=== PATIENT | female | born 1990 | race Caucasian/White ===

== ENCOUNTER 2018-01-10 22:56 | Emergency (ER) | payer OTHER ==
--- NOTE | 2018-01-11 00:43 | ED Physician Documentation ---
PD HPI LOWER EXT INJURY - Stated complaint Stated Complaint: R FOOT LAC - Chief complaint Chief Complaint: Ext Problem - History obtained from History obtained from: Patient - History of Present Illness PD HPI LOW EXT INJURY LOCATION: Right, Foot Type of injury: Laceration Where injury occurred: Home Timing - onset: How many minutes ago (30) Timing - details: Abrupt onset, Still present Pain level now: 6 Improved by: Rest Worsened by: Moving, Palpating Recently seen: Not recently seen - Additional information Additional information: stepped on sharp object in her kitchen, feels like it was glass (recently broke a glass in kitchen) and has sharp FB sensation whenever she bears weight on the right foot Review of Systems Skin: reports: Laceration (s) Neurologic: denies: Focal weakness, Numbness PD PAST MEDICAL HISTORY - Past Medical History Past Medical History: No - Allergies Allergies/Adverse Reactions: Allergies Allergy/AdvReac Type Severity Reaction Status Date / Time No Known Drug Allergies Allergy Verified 01/10/18 23:13 PD ED PE NORMAL - Vitals Vital signs reviewed: Yes - General General: Alert and oriented X 3, No acute distress, Well developed/nourished - Extremities Extremities: Normal ROM s pain, No edema - Neuro Neuro: No motor deficit, No sensory deficit PD ED PE EXPANDED - Extremities Feet visual: 1 - laceration (punctrue, 0.5 cm), tenderness Results - Vitals Vitals: Oxygen O2 Source Room air Procedures - FB removal FB location: Subcutaneous FB removal preparation: Local anesthesia-specify (1% lidocaine) Removal method: Foreceps, Incision (incision was minimally lengthened for better exposure) FB removal aftercare: No complications, Patient tolerated well, Removed successfully PD MEDICAL DECISION MAKING - ED course Complexity details: reviewed results, re-evaluated patient, considered differential, d/w patient - Sepsis Event Vital Signs: Oxygen O2 Source Room air Departure - Departure Disposition: 01 Home, Self Care Clinical Impression: Foreign body (FB) in soft tissue Condition: Good Instructions: ED Foreign Body Soft Tissue Removed Discharge Date/Time: 01/11/18 03:21
[2018-01-11] MEDS ORDERED: LIDOCAINE 1% 2 ML VIAL SUBQ STA (00:56)
--- NOTE | 2018-01-11 01:29 | XRAY Report ---
Procedure Date: 01/11/2018 Accession Number: [id number] / [id number] Procedure: XR - Foot 3 View RT CPT Code: FULL RESULT: EXAM: RIGHT FOOT RADIOGRAPHY EXAM DATE: 01/11/2018 01:12 AM. CLINICAL HISTORY: Laceration, possible foreign body. COMPARISON: None. TECHNIQUE: 3 views. FINDINGS: Bones: No acute fracture seen. Joints: No dislocation. Joint spaces appear intact. Soft Tissues: Possible subtle small foreign body in the plantar soft tissues at the approximate level of the second metatarsal head. IMPRESSION: 1. Possible small subtle faintly seen foreign body in the plantar soft tissues at the approximate level of the second metatarsal head. RADIA
[2018-01-11 01:55] VITALS: BP 103/82
[2018-01-11] MEDS ORDERED: BACITRACIN OINT TOP STA (03:08)
== END 2018-01-11 03:21 | disposition home or self-care (01) ==
LOC: ED 22:56
DX: S91.341A Puncture wound with foreign body, right foot, initial encounter (principal); W26.9XXA Contact with unspecified sharp object(s), initial encounter; W45.8XXA Other foreign body or object entering through skin, initial encounter; Y92.000 Kitchen of unspecified non-institutional (private) residence as the place of occurrence of the external cause
CPT/HCPCS: 28190; 73630; 99283; A9270

== ENCOUNTER 2018-03-25 20:52 | Emergency (ER) | payer OTHER ==
--- NOTE | 2018-03-25 21:38 | ED Physician Documentation ---
PD HPI HEADACHE - Stated complaint Stated Complaint: ZHANG - Chief complaint Chief Complaint: Neuro - History obtained from History obtained from: Patient - History of Present Illness Timing - onset: How many days ago (8) Timing - onset during: Light activity Timing - duration: Days (8) Timing - details: Gradual onset, Still present, Waxing and waning Worst headache ever?: No: Worst headache ever? (has had similar ones the past year or so, lasting few days up to 11 days longest. Interval times between them is normal without headache. Had not been seen for prior ones. Seen by PMD couple days ago for this one and Rx Imitrex, which she took without improvement.) Location: Front Quality: Throbbing, Aching Associated symptoms: Nausea, Vision changes (some blurred at times; and light sensitive). No: Fever, Stiff neck, Vomiting, Weakness, Numbness Improved by: Dark room Worsened by: Light, Moving. No: Noise Contributing factors: No: Anticoagulated, Hypertension, Recent illness, Trauma Similar symptoms before: No diagnosis Recently seen: Clinic Review of Systems Constitutional: reports: Fatigue. denies: Fever, Chills, Myalgias Nose: reports: Congestion. denies: Rhinorrhea / runny nose Throat: denies: Sore throat Respiratory: denies: Cough GI: reports: Nausea. denies: Abdominal Pain, Vomiting, Diarrhea Skin: denies: Rash, Lesions Neurologic: denies: Focal weakness, Numbness Endocrine: denies: Weight loss Immunocompromised: denies: Immunocompromised PD PAST MEDICAL HISTORY - Past Medical History Cardiovascular: None Respiratory: None Neuro: None, Other (recurrent headaches with intervals of no headache over the past year or so. No eval/diagnosis. ) Endocrine/Autoimmune: None GI: None SOFTWARE DEVELOPER MID LEVEL: None : None HEENT: None Psych: None Musculoskeletal: None Derm: None - Past Surgical History Past Surgical History: No - Present Medications Home Medications: Ambulatory Orders Medication Instructions Recorded Confirmed Bcp 03/25/18 Naproxen [Naprosyn] 500 mg PO BID PRN #20 tablet 03/25/18 Ondansetron HCl [Zofran] 4 mg PO Q6H PRN #20 tablet 03/25/18 Sumatriptan Succinate [Imitrex] 50 - 100 mg PO DAILY 03/25/18 03/25/18 - Allergies Allergies/Adverse Reactions: Allergies Allergy/AdvReac Type Severity Reaction Status Date / Time No Known Drug Allergies Allergy Verified 03/25/18 20:59 - Living Situation Living Situation: reports: With spouse/s.o. Living Arrangement: reports: At home - Social History Does the pt smoke?: No Smoking Status: Never smoker Does the pt drink ETOH?: No Does the pt have substance abuse?: No - Family History Family history: reports: Other (brain tumor in grandmother). 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 No focal symptoms nor red flags to denote need for emergent imaging or other tests. Symptoms improved with meds here. Had not improved with Imitrex Rx by PCP but headache was 7 days into it so not expect to get improvement with tryptans. ), considered differential (discussed imaging or not, and I talked about the low yield of imaging for headache pattern such as this and if imaging to be done, then MRI is better. So I would not consider need for CT/imaging this evening. ), d/w patient Departure - Departure Disposition: 01 Home, Self Care Clinical Impression: Migraine Qualifiers: Migraine type: without aura Status migrainosus presence: with status migrainosus Intractability: not intractable Qualified Code(s): G43.001 - Migraine without aura, not intractable, with status migrainosus Condition: Stable Record reviewed to determine appropriate education?: Yes Instructions: ED Headache Migraine Follow-Up: QUITA CONNELLY MD [Primary Care Provider] - Prescriptions: Naproxen [Naprosyn] 500 mg PO BID PRN #20 tablet PRN Reason: Headache Ondansetron HCl [Zofran] 4 mg PO Q6H PRN #20 tablet PRN Reason: Nausea / Vomiting Comments: The sound like migraine type headaches. Use some Zofran if needed for nausea and hydrocodone if needed for pain subsequently later tonight and into tomorrow. At this point though I think the current headache will improve and go away. For subsequent headaches, use the Imitrex previously prescribed in combination with naproxen and Zofran and see if it is effective at stopping the migraines early in the course, like in the first few hours. Follow-up with your primary care regarding further evaluation and treatment.
[2018-03-25] MEDS ORDERED: SODIUM CHLORIDE 0.9% 1,000 ML IV ONE (22:01)
[2018-03-25] MEDS ORDERED: METOCLOPRAMIDE 10 MG/2 ML VIAL IVP STA ×2 (22:01→23:05)
[2018-03-25] MEDS ORDERED: KETOROLAC 30 MG/ML VIAL IVP STA (22:01)
[2018-03-25] MEDS ORDERED: diphenhydrAMINE INJ 50 MG/ML VIAL IVP STA (22:01)
[2018-03-25] MEDS ORDERED: DEXAMETHASONE 10 MG/ML VIAL IVP STA (22:01)
[2018-03-25 22:28] LABS: BASOPHILS % (AUTO) 0.4 %; EOSINOPHILS # (AUTO) 0.1 10^3/uL (0.0-0.7); EOSINOPHILS % (AUTO) 0.8 %; HGB - HEMOGLOBIN 13.7 g/dL (12.0-16.0); LYMPHOCYTES # (AUTO) 2.6 10^3/uL (1.5-3.5); LYMPHOCYTES % (AUTO) 39.7 %; MEAN CORPUSCULAR HEMOGLOBIN 32.4 pg (27.0-31.0); MEAN CORPUSCULAR VOLUME 92.5 fL (81.0-99.0); MEAN PLATELET VOLUME 8.4 fL (7.9-10.8); MONOCYTES # (AUTO) 0.4 10^3/uL (0.0-1.0); MONOCYTES % (AUTO) 6.7 %; NEUTROPHILS # (AUTO) 3.5 10^3/uL (1.5-6.6); NEUTROPHILS % (AUTO) 52.4 %; PLT - PLATELET COUNT 241 10^3/uL (130-450); RED BLOOD COUNT 4.22 10^6/uL (4.20-5.40); RED CELL DISTRIBUTION WIDTH 12.9 % (12.0-15.0); WHITE BLOOD COUNT 6.6 x10^3/uL (4.8-10.8)
[2018-03-25 22:42] LABS: ALBUMIN 4.6 g/dL (3.2-5.5); ALBUMIN/GLOBULIN RATIO 1.6 (1.0-2.2); BILIRUBIN,TOTAL 0.6 mg/dL (0.2-1.0); CALCIUM 9.2 mg/dL (8.5-10.3); CREATININE 0.6 mg/dL (0.4-1.0); TOTAL PROTEIN 7.5 g/dL (6.7-8.2)
[2018-03-25] MEDS ORDERED: HYDROcod/ACET 5/325 Prepack 4 PO STA (23:05)
[2018-03-25] MEDS ORDERED: ONDANSETRON ODT 4 MG Prepack 2 TL PRN (23:05)
[2018-03-25 23:14] VITALS: BP 108/59
== END 2018-03-25 23:20 | disposition home or self-care (01) ==
LOC: ED 20:52
DX: G43.001 Migraine without aura, not intractable, with status migrainosus (principal); R11.0 Nausea
CPT/HCPCS: 36415; 80053; 83690; 85025; 85651; 96361; 96374; 96375; 96376; 99283; 99284; J1200; J2765

== ENCOUNTER 2018-03-29 21:05 | Emergency (ER) | payer OTHER ==
--- NOTE | 2018-03-29 21:31 | ED Physician Documentation ---
PD HPI FOCAL NEURO - Stated complaint Stated Complaint: NUMB FACE/ZHANG/FATIGUE - Chief complaint Chief Complaint: Neuro - History obtained from History obtained from: Patient - History of Present Illness Timing - onset: How many days ago (12 days ago) Timing - details: Gradual onset, Constant, Waxing and waning Severity of deficit: Mild Weakness: Left (arm) Numbness: Left (face, arm, leg) Associated symptoms: Headache Baseline status: positive: A&OX3, ambulatory, indep Similar symptoms before: Has not had sx before Recently seen: Emergency Dept - Additional information Additional information: c/o bifrontal ZHANG x 12 days, T+R from this ED 4 days ago (given benadryl, toradol , reglan, decadron) and then evaluated at [facility] and given immitrex. also prescribed hydrocodone from this ED. she reports that she has not had any effective, lasting relief with these measures. most recent vicodin dose was 17:00 today. 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 also weakness of LUE and LLE. Review of Systems Constitutional: reports: Reviewed and negative Eyes: reports: Reviewed and negative Cardiac: reports: Reviewed and negative Respiratory: reports: Reviewed and negative GI: reports: Reviewed and negative Musculoskeletal: reports: Reviewed and negative Neurologic: reports: Focal weakness, Numbness, Headache. denies: Confused, Altered mental status PD PAST MEDICAL HISTORY - Past Medical History Cardiovascular: None Respiratory: None Neuro: None, Other Endocrine/Autoimmune: None GI: None INVENTORY COORDINATOR: None : None HEENT: None Psych: None Musculoskeletal: None Derm: None - Past Surgical History Past Surgical History: No - Present Medications Home Medications: Ambulatory Orders Medication Instructions Recorded Confirmed Bcp 03/25/18 Naproxen [Naprosyn] 500 mg PO BID PRN #20 tablet 03/25/18 Ondansetron HCl [Zofran] 4 mg PO Q6H PRN #20 tablet 03/25/18 Sumatriptan Succinate [Imitrex] 50 - 100 mg PO DAILY 03/25/18 03/25/18 Metoclopramide [Reglan] 10 mg PO Q6H PRN #14 tablet 03/30/18 oxyCODONE/ACET 5/325 [Percocet 5 1 - 2 each PO Q6H PRN #14 tablet 03/30/18 mg/325 mg] - Allergies Allergies/Adverse Reactions: Allergies Allergy/AdvReac Type Severity Reaction Status Date / Time No Known Drug Allergies Allergy Verified 03/29/18 21:18 - Social History Does the pt smoke?: No Smoking Status: Never smoker Does the pt drink ETOH?: No Does the pt have substance abuse?: No - Immunizations Immunizations are current?: Yes - POLST Patient has POLST: No PD ED PE NORMAL - Vitals Vital signs reviewed: Yes - General General: Alert and oriented X 3, No acute distress, Well developed/nourished - HEENT HEENT: Atraumatic, PERRL, EOMI, Moist mucous membranes - Neck Neck: Supple, no meningeal sign - Cardiac Cardiac: RRR, No murmur - Respiratory Respiratory: No respiratory distress, Clear bilaterally - Derm Derm: Normal color, Warm and dry, No rash - Neuro Neuro: Alert and oriented X 3, 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 no facial droop), Abnormal sensation (decreased LTS left face, LUE, LLE), CNII-XII intact (except numbness left face), PERRL, Cerebellar nl, Normal speech Results - Vitals Vitals: Vital Signs - 24 hr 03/29/18 03/29/18 03/30/18 22:35 23:28 00:38 Heart Rate 83 90 99 Respiratory 18 16 15 Rate Blood Pressure 121/81 H 131/85 H 90/53 L O2 Saturation 100 100 99 03/30/18 03/30/18 03/30/18 01:04 01:53 02:17 Heart Rate 94 76 73 Respiratory 15 17 16 Rate Blood Pressure 91/60 86/52 L 96/68 O2 Saturation 99 100 100 03/30/18 03/30/18 02:40 02:50 Heart Rate 82 77 Respiratory 16 16 Rate Blood Pressure 109/83 H 112/75 O2 Saturation 97 100 Oxygen O2 Source Room air - Labs Labs: Laboratory Tests 03/29/18 03/29/18 03/29/18 21:17 21:17 23:54 WBC 9.8 RBC 4.39 Hgb 14.3 Hct 40.2 MCV 91.4 MCH 32.6 H MCHC 35.6 RDW 13.0 Plt Count 232 MPV 8.2 Neut # (Auto) 5.0 Lymph # (Auto) 4.0 H [place] # (Auto) 0.6 Eos # (Auto) 0.1 Baso # (Auto) 0.0 Absolute Nucleated RBC 0.02 Nucleated RBC % 0.2 Sodium 136 Potassium 3.2 L Chloride 101 Carbon Dioxide 26 Anion Gap 9.0 BUN 10 Creatinine 0.7 Estimated GFR (MDRD) 101 Glucose 101 H Calcium 9.3 Total Bilirubin 0.4 AST 18 ALT 14 Alkaline Phosphatase 68 Total Protein 8.1 Albumin 5.0 Globulin 3.1 Albumin/Globulin Ratio 1.6 Lipase 21 L Ur Specific [place] <=1.005 Urine HCG, Qual NEGATIVE - Rads (name of study) CTH Radiology: Prelim report reviewed, See rad report CT head angio Radiology: Prelim report reviewed, See rad report CT neck angio Radiology: Prelim report reviewed, See rad report PD MEDICAL DECISION MAKING - ED course Complexity details: reviewed results, re-evaluated patient, considered differential, d/w patient ED course: D/W Dr. Baptiste (neurology at [facility]) both before and after ED testing. he suspects migraine with hemiplegia, recommends toradol, benadryl, antinauseant (such as reglan or compazine, specifically), magnesium sulfate 1 gm IV and depakote 500mg IV; discharge with f/u pmd or neuro and avoid triptans. patient reported improvement with these measures, although not resolution. Departure - Departure Disposition: 01 Home, Self Care Clinical Impression: Migraine, hemiplegic Condition: Good Instructions: ED Headache Migraine Follow-Up: QUITA CONNELLY MD [Primary Care Provider] - (Call this morning to arrange for next available appointment) Prescriptions: Metoclopramide [Reglan] 10 mg PO Q6H PRN #14 tablet PRN Reason: Nausea / Vomiting oxyCODONE/ACET 5/325 [Percocet 5 mg/325 mg] 1 - 2 each PO Q6H PRN #14 tablet PRN Reason: Pain Discharge Date/Time: 03/30/18 02:54
[2018-03-29 21:33] LABS: BASOPHILS % (AUTO) 0.4 %; EOSINOPHILS # (AUTO) 0.1 10^3/uL (0.0-0.7); EOSINOPHILS % (AUTO) 0.5 %; HGB - HEMOGLOBIN 14.3 g/dL (12.0-16.0); LYMPHOCYTES % (AUTO) 40.9 %; MEAN CORPUSCULAR HEMOGLOBIN 32.6 pg (27.0-31.0); MEAN CORPUSCULAR HGB CONC 35.6 g/dL (32.0-36.0); MEAN CORPUSCULAR VOLUME 91.4 fL (81.0-99.0); MEAN PLATELET VOLUME 8.2 fL (7.9-10.8); MONOCYTES # (AUTO) 0.6 10^3/uL (0.0-1.0); MONOCYTES % (AUTO) 6.4 %; NEUTROPHILS % (AUTO) 51.8 %; PLT - PLATELET COUNT 232 10^3/uL (130-450); RED BLOOD COUNT 4.39 10^6/uL (4.20-5.40); WHITE BLOOD COUNT 9.8 x10^3/uL (4.8-10.8)
[2018-03-29 21:43] LABS: ALBUMIN/GLOBULIN RATIO 1.6 (1.0-2.2); BILIRUBIN,TOTAL 0.4 mg/dL (0.2-1.0); CALCIUM 9.3 mg/dL (8.5-10.3); CREATININE 0.7 mg/dL (0.4-1.0); TOTAL PROTEIN 8.1 g/dL (6.7-8.2)
[2018-03-29] MEDS ORDERED: IOPAMIDOL-300 100 ML VIAL ONE (22:11)
--- NOTE | 2018-03-29 22:14 | CT Report ---
Reason: left-sided weakness/numbness Procedure Date: 03/29/2018 Accession Number: [id number] / [id number] Procedure: CT - Head W/O Stroke Protocol CPT Code: FULL RESULT: EXAM: CT HEAD WITHOUT CONTRAST. EXAM DATE: 03/29/2018 10:07 PM. CLINICAL HISTORY: Left-sided weakness/numbness. COMPARISON: None. TECHNIQUE: Multiaxial CT images were obtained from the foramen magnum to the vertex. Reformats: Sagittal and coronal. IV contrast: None. In accordance with CT protocol optimization, one or more of the following dose reduction techniques were utilized for this exam: automated exposure control, adjustment of mA and/or KV based on patient size, or use of iterative reconstructive technique. FINDINGS: Parenchyma: No intraparenchymal hemorrhage. No evidence of mass, midline shift, or CT findings of acute infarction. Lawson-white differentiation is distinct. Extraaxial Spaces: Normal for age. No subdural or epidural collections identified. Ventricles: Normal in size and position. Sinuses and Orbits: Imaged paranasal sinuses, orbits, and mastoids show no significant abnormality. Bones: No evidence of fracture or calvarial defect. IMPRESSION: Normal head CT. ASPECTS score is 10 on the right and 10 on the left. RADIA The call report notification system was initiated by Dr. Anna Briones at 22:11 hrs on 03/29/18. The above findings were discussed with Dr. López by Dr. Anna Briones at 22:13 hrs on 03/29/18.
--- NOTE | 2018-03-29 23:10 | CT Report ---
Reason: left-sided weakness/numbness Procedure Date: 03/29/2018 Accession Number: [id number] / [id number] Procedure: CT - Neck Angio CPT Code: FULL RESULT: EXAM: CT ANGIOGRAM HEAD AND NECK CT SCAN HEAD WITH CONTRAST EXAM DATE:03/29/2018 10:26 PM. CLINICAL HISTORY:Left-sided weakness/numbness. COMPARISON:Noncontrast brain CT from the same day. TECHNIQUE: Routine axial helical CTA imaging was performed from the aortic arch through the [place] of [place]. Routine axial CT imaging of the head was performed following contrast administration. Reconstructions: Routine multiplanar 3D MIP reconstructions. IV contrast: 80 mL Isovue 300. NASCET Criteria are used for stenosis measurements. In accordance with CT protocol optimization, one or more of the following dose reduction techniques were utilized for this exam: automated exposure control, adjustment of mA and/or KV based on patient size, or use of iterative reconstructive technique. FINDINGS: No abnormal brain parenchymal enhancement is appreciated. CT ANGIOGRAM EXTRACRANIAL CIRCULATION: The visualized arch is unremarkable. Great vessels are patent and unremarkable. Right Carotid: The common carotid, internal carotid, and external carotid arteries are widely patent. No dissection, significant atherosclerotic plaque, or calcification identified. Left Carotid: The common carotid, internal carotid, and external carotid arteries are widely patent. No dissection, significant atherosclerotic plaque, or calcification identified. Vertebrals: The vertebrobasilar system shows no stenosis, dissection, aneurysm, or significant atherosclerotic disease. The right vertebral artery is dominant. The left vertebral artery arises directly from the aortic arch, a normal variant. CT ANGIOGRAM INTRACRANIAL CIRCULATION: The internal carotid arteries are patent from the superior cervical to the supraclinoid portions. The bilateral A1, A2, M1, and M2 segments are patent. A normal caliber anterior communicating artery is present. In the posterior circulation, the bilateral V4 segments are patent. The PICAs and AICAs are well-demonstrated. The basilar artery is widely patent throughout its course to the terminus. There is normal contrast opacification in the superior cerebellar and posterior cerebral arteries. Bilateral posterior communicating arteries are present. The dural venous sinuses are patent. Other: The visualized bones, soft tissues, and lung apices are unremarkable. IMPRESSION: 1. No abnormal brain parenchymal enhancement. 2. Patent dural venous sinuses. 3. Normal CTA of the head and neck. RADIA The above findings were discussed with Dr. López by Dr. Anna Briones at 23:04 hrs on 03/29/18.
[2018-03-29] MEDS ORDERED: MAGNESIUM SULFATE 1 GM/2 ML VIAL IVP STA (23:48)
[2018-03-29] MEDS ORDERED: KETOROLAC 60 MG/2 ML VIAL IVP STA (23:49)
[2018-03-29] MEDS ORDERED: diphenhydrAMINE INJ 50 MG/ML VIAL IVP STA (23:49)
[2018-03-29] MEDS ORDERED: METOCLOPRAMIDE 10 MG/2 ML VIAL IVP STA (23:49)
[2018-03-29] MEDS ORDERED: VALPROATE INJ 500 MG in SODIUM CHLORIDE 0.9% 100ML 100 ML IV STA (23:49)
[2018-03-29] MEDS ORDERED: IOPAMIDOL-300 100 ML VIAL IVP ONE (23:58)
[2018-03-30] MEDS ORDERED: MAGNESIUM SULFATE 1 GM/2 ML VIAL ONE (00:10)
[2018-03-30 00:42] LABS: HCG UR QUAL NEGATIVE
[2018-03-30] MEDS ORDERED: SODIUM CHLORIDE 0.9% 500 ML IV STA (01:55)
[2018-03-30 02:50] VITALS: BP 112/75
== END 2018-03-30 02:54 | disposition home or self-care (01) ==
LOC: ED 21:05
DX: G43.409 Hemiplegic migraine, not intractable, without status migrainosus (principal)
CPT/HCPCS: 36415; 70450; 70496; 70498; 80053; 81025; 83690; 85025; 96365; 96375; 99283; 99285; J1200; J2765; Q9967

== ENCOUNTER 2018-08-26 08:00 | Outpatient (CLI) | payer OTHER ==
[2018-08-26 18:05] LABS: MUDS CUTOFF CONCENTRATIONS CUTOFF CONC BELOW:
[2018-08-26 19:16] LABS: AMPHETAMINE SCREEN,URINE NEGATIVE (NEGATIVE); BENZODIAZEPINES SCREEN, URINE NEGATIVE (NEGATIVE); COCAINE SCREEN URINE NEGATIVE (NEGATIVE); METHADONE SCREEN, URINE NEGATIVE (NEGATIVE); METHAMPHETAMINES SCREEN, URINE NEGATIVE (NEGATIVE); OPIATE SCREEN, URINE NEGATIVE (NEGATIVE); OXYCODONE SCREEN, URINE NEGATIVE (NEGATIVE); PROPOXYPHENE SCREEN, URINE NEGATIVE (NEGATIVE); TRICYCLIC ANTIDEPRESSANT,URINE NEGATIVE (NEGATIVE)
== END 2018-08-26 23:59 | disposition home or self-care (01) ==
LOC: LAB.R 08:00
PROVIDERS: ATTEND Registered Nurse
DX: Z33.1 Pregnant state, incidental (principal)
CPT/HCPCS: 80306

== ENCOUNTER 2018-10-20 13:19 | Outpatient (CLI) | payer OTHER ==
[2018-10-20 14:46] LABS: HGB - HEMOGLOBIN 11.4 g/dL (12.0-16.0); MEAN CORPUSCULAR HEMOGLOBIN 33.7 pg (27.0-31.0); MEAN CORPUSCULAR HGB CONC 34.7 g/dL (32.0-36.0); MEAN CORPUSCULAR VOLUME 97.2 fL (81.0-99.0); MEAN PLATELET VOLUME 7.1 fL (7.9-10.8); RED BLOOD COUNT 3.38 10^6/uL (4.20-5.40); RED CELL DISTRIBUTION WIDTH 12.5 % (12.0-15.0); WHITE BLOOD COUNT 10.6 x10^3/uL (4.8-10.8)
== END 2018-10-20 13:20 | disposition home or self-care (01) ==
LOC: LAB 13:19
PROVIDERS: ATTEND Registered Nurse
DX: Z34.90 Encounter for supervision of normal pregnancy, unspecified, unspecified trimester (principal)
CPT/HCPCS: 36415; 82950; 85027; 86850

== ENCOUNTER 2018-10-25 20:35 | Emergency (ER) | payer OTHER ==
[2018-10-25] MEDS ORDERED: ACETAMINOPHEN 325 MG TABLET PO STA (22:16)
[2018-10-25] MEDS ORDERED: METOCLOPRAMIDE 10 MG/2 ML VIAL IVP STA (22:19)
[2018-10-25 22:30] LABS: BASOPHILS % (AUTO) 0.1 %; EOSINOPHILS # (AUTO) 0.1 10^3/uL (0.0-0.7); EOSINOPHILS % (AUTO) 0.9 %; HGB - HEMOGLOBIN 11.8 g/dL (12.0-16.0); LYMPHOCYTES # (AUTO) 1.9 10^3/uL (1.5-3.5); LYMPHOCYTES % (AUTO) 22.3 %; MEAN CORPUSCULAR HEMOGLOBIN 33.9 pg (27.0-31.0); MEAN CORPUSCULAR HGB CONC 35.2 g/dL (32.0-36.0); MEAN CORPUSCULAR VOLUME 96.5 fL (81.0-99.0); MEAN PLATELET VOLUME 7.2 fL (7.9-10.8); MONOCYTES # (AUTO) 0.7 10^3/uL (0.0-1.0); MONOCYTES % (AUTO) 8.8 %; NEUTROPHILS # (AUTO) 5.7 10^3/uL (1.5-6.6); NEUTROPHILS % (AUTO) 67.9 %; PLT - PLATELET COUNT 262 10^3/uL (130-450); RED BLOOD COUNT 3.47 10^6/uL (4.20-5.40); RED CELL DISTRIBUTION WIDTH 12.6 % (12.0-15.0); WHITE BLOOD COUNT 8.4 x10^3/uL (4.8-10.8)
[2018-10-25 22:38] LABS: ALBUMIN 2.9 g/dL (3.2-5.5); ALBUMIN/GLOBULIN RATIO 0.9 (1.0-2.2); BILIRUBIN,TOTAL 0.3 mg/dL (0.2-1.0); CALCIUM 8.7 mg/dL (8.5-10.3); CREATININE 0.4 mg/dL (0.4-1.0); TOTAL PROTEIN 6.2 g/dL (6.7-8.2)
--- NOTE | 2018-10-26 00:13 | Ultrasound Report ---
Reason: ruq abdomen Procedure Date: 10/25/2018 Accession Number: [id number] / [id number] Procedure: US - Abdomen Limited CPT Code: FULL RESULT: EXAM: ABDOMEN ULTRASOUND LIMITED, RUQ EXAM DATE: 10/25/2018 11:46 PM. CLINICAL HISTORY: Pain COMPARISON: None. TECHNIQUE: Real-time scanning was performed with static images obtained. FINDINGS: Liver: Diffusely increased echogenicity. 16.1 cm. Main portal vein flow: Hepatopetal. Gallbladder: No stones, wall thickening, or sonographic Thomas's sign. Biliary System: CBD measures 2 mm. No intrahepatic or extrahepatic ductal dilatation. Other: Right kidney demonstrates no hydronephrosis. IMPRESSION: Diffusely increased liver echogenicity, most commonly seen with steatosis. RADIA
--- NOTE | 2018-10-26 00:27 | XRAY Report ---
Reason: chest pain Procedure Date: 10/25/2018 Accession Number: [id number] / [id number] Procedure: XR - Chest 1 View X-Ray CPT Code: 43642 FULL RESULT: EXAM: CHEST RADIOGRAPHY EXAM DATE: 10/25/2018 11:53 PM. CLINICAL HISTORY: Chest pain. COMPARISON: None. TECHNIQUE: 1 view. FINDINGS: Lungs/Pleura: No focal opacities evident. No pleural effusion. No pneumothorax. Mediastinum: Within exam limitations, the cardiomediastinal contour is normal. Other: None. IMPRESSION: Normal single view chest. RADIA
--- NOTE | 2018-10-26 01:17 | ED Physician Documentation ---
History of Present Illness - Stated complaint Stated Complaint: R SHOULDER PAINS/27WK OB - Chief complaint Chief Complaint: General - History obtained from History obtained from: Patient - History of Present Illness Timing: Today Pain level max: 7 Pain level now: 7 Quality: aching, sharp Radiates to: right chest wall Improved by: nothing Worsened by: nothing Associated symptoms: nausea, vomited earlier today. burning in upper abdomen radiating to chest - Treatment prior to arrival Treatment prior to arrival: none - Additonal information Additional information: Pt states she has been nauseous today and vomited a few times. Then later in the day developed R sided scapular pain radiating to R chest and hurts to take a deep breath. She was seen by her doctor who told her she wanted to test her for gallstones. She has some mid upper abdominal discomfort. Reports burning with radiation up into chest. No recent travel, no leg pain or swelling. Not sob and no BARBOSA. No fever or cough. Denies hx of DVT/PE. PD PAST MEDICAL HISTORY - Past Medical History Past Medical History: No Cardiovascular: None Respiratory: None Neuro: None, Other Endocrine/Autoimmune: None GI: None [employer] RESERVATIONS: None : None HEENT: None Psych: None Musculoskeletal: None Derm: None - Past Surgical History Past Surgical History: No - Present Medications Home Medications: Ambulatory Orders Medication Instructions Recorded Confirmed Pnv No.95/Ferrous Fum/Folic AC 1 each PO DAILY 10/25/18 10/25/18 [ Caplet] - Allergies Allergies/Adverse Reactions: Allergies Allergy/AdvReac Type Severity Reaction Status Date / Time No Known Drug Allergies Allergy Verified 10/25/18 20:42 - Social History Does the pt smoke?: No Smoking Status: Never smoker Does the pt drink ETOH?: No Does the pt have substance abuse?: No - Immunizations Immunizations are current?: Yes - POLST Patient has POLST: No PD ED PE NORMAL - Vitals Vital signs reviewed: Yes - General General: Alert and oriented X 3 - HEENT HEENT: Atraumatic - Neck Neck: Supple, no meningeal sign - Cardiac Cardiac: No murmur, No gallop, No rub, Strong equal pulses, Other (regular rhythm, mild tachycardia) - Respiratory Respiratory: No respiratory distress, Clear bilaterally - Abdomen Abdomen: Soft, Non tender, Other (gravid abdomen ) - Female Female : Deferred - Rectal Rectal: Deferred - Back Back: No CVA TTP, No spinal TTP, Other (mild scapular tenderness) - Derm Derm: Normal color, Warm and dry, No rash - Extremities Extremities: No edema, No calf tenderness / cord - Neuro Neuro: Alert and oriented X 3 Eye Opening: Spontaneous Motor: Obeys Commands Verbal: Oriented GCS Score: 15 - Psych Psych: Normal mood, Normal affect Results - Vitals Vitals: Vital Signs - 24 hr 10/26/18 01:19 Temperature 36.7 C Heart Rate 94 Respiratory 16 Rate Blood Pressure 98/62 O2 Saturation 100 Oxygen O2 Source Room air - EKG (time done) No standard instances Rate: Tachy Rhythm: Sinus tachycardia [place]: Normal Intervals: Normal RI QRS: Normal Ischemia: Normal ST segments Other comments: Other comments (no signs of R heart strain, no RBBB or axis deviation) Computer interpretation: Agree with computer - Labs Labs: Laboratory Tests 10/25/18 10/25/18 10/25/18 22:19 22:19 22:19 WBC 8.4 RBC 3.47 L Hgb 11.8 L Hct 33.5 L MCV 96.5 MCH 33.9 H MCHC 35.2 RDW 12.6 Plt Count 262 MPV 7.2 L Neut # (Auto) 5.7 Lymph # (Auto) 1.9 [place] # (Auto) 0.7 Eos # (Auto) 0.1 Baso # (Auto) 0.0 Absolute Nucleated RBC 0.00 Nucleated RBC % 0.0 D-Dimer 274.0 H Sodium 136 Potassium 3.4 L Chloride 103 Carbon Dioxide 22 Anion Gap 11.0 BUN 6 Creatinine 0.4 Estimated GFR (MDRD) 191 Glucose 102 H Calcium 8.7 Total Bilirubin 0.3 AST 17 ALT 10 Alkaline Phosphatase 63 Total Protein 6.2 L Albumin 2.9 L Globulin 3.3 Albumin/Globulin Ratio 0.9 L Lipase 23 Normal labs except mildly elevated d-dimer but when adjusted for end of 2nd/beginning of third trimester this is likely normal. - Rads (name of study) No standard instances Radiology: Final report received (US of RUQ shows mild steatosis but no gallstones and no significant CBD dilatation ) PD MEDICAL DECISION MAKING - ED course Complexity details: reviewed results, re-evaluated patient, considered differential, d/w patient ED course: 28 y/o F with R upper/mid back pain, upper abdominal pain, upper chest pain associated with nausea/vomiting, reports pain with deep breathing and some mild tachycardia. Exam is benign however. DDx includes cholelithiasis, cholecystitis, GERD, pancreatitis, hepatitis, PE, pneumonia. Pt's evaluation here largely negative - no evidence of pancreatitis, gallstones, d-dimer wnl for 2nd trimester of . EKG nonischemic and also not suggestive of PE (no R heart strain). Mild steatosis on US commnicated to patient. Symptoms today likely due GERD associated with her and muscle strain from vomiting earlier today. Pt however was given strict return precautions in case of worsening pain, fever, sob or new concerns. Departure - Departure Disposition: 01 Home, Self Care Clinical Impression: Back pain, Back pain affecting Condition: Good Record reviewed to determine appropriate education?: Yes Instructions: ED Acute Pain [facility] Follow-Up: Provider,Other [Primary Care Provider] - Within 3 Days (recheck your symptoms) Comments: Your labs, Chest xray, EKG, and Ultrasound today were negative except for a mildly fatty liver on ultrasound and a mildly elevated lab called a d-dimer. However this is probably normal at your stage of . Your symptoms improved in the ED. I do not feel that you are having a pulmonary embolism (PE, blood clot in your lung). You do not have gallstones or pancreatitis. Your symptoms may have been due to a strain from vomiting. Follow up with your doctor to recheck your symptoms. Discharge Date/Time: 10/26/18 01:25
[2018-10-26 01:19] VITALS: BP 98/62
== END 2018-10-26 01:25 | disposition home or self-care (01) ==
LOC: ED 20:35
DX: O99.89 Other specified diseases and conditions complicating pregnancy, childbirth and the puerperium (principal); M54.9 Dorsalgia, unspecified; R07.89 Other chest pain; R10.10 Upper abdominal pain, unspecified; R00.0 Tachycardia, unspecified; O99.612 Diseases of the digestive system complicating pregnancy, second trimester; K76.0 Fatty (change of) liver, not elsewhere classified; Z3A.27 27 weeks gestation of pregnancy
CPT/HCPCS: 36415; 71045; 76705; 80053; 83690; 85025; 85379; 93005; 96374; 99283; A9270; J2765; 80048

== ENCOUNTER 2018-10-27 09:47 | Outpatient (CLI) | payer OTHER | END 2018-10-27 09:48 | disposition home or self-care (01) | LOC: LAB 09:47 | PROVIDERS: ATTEND Registered Nurse | DX: O99.810 Abnormal glucose complicating pregnancy (principal) | CPT/HCPCS: 36415; 82951; 82952 ==

== ENCOUNTER 2018-11-28 11:28 | Outpatient (CLI) | payer OTHER ==
[2018-11-28 12:14] LABS: ALBUMIN 3.1 g/dL (3.2-5.5); ALBUMIN/GLOBULIN RATIO 0.8 (1.0-2.2); BILIRUBIN,TOTAL 0.5 mg/dL (0.2-1.0); CALCIUM 8.7 mg/dL (8.5-10.3); CREATININE 0.5 mg/dL (0.4-1.0); TOTAL PROTEIN 6.8 g/dL (6.7-8.2)
== END 2018-11-28 11:29 | disposition home or self-care (01) ==
LOC: LAB 11:28
PROVIDERS: ATTEND Nurse Practitioner Obstetrics & Gynecology
DX: K76.0 Fatty (change of) liver, not elsewhere classified (principal)
CPT/HCPCS: 36415; 80053

== ENCOUNTER 2018-12-05 08:25 | Outpatient (CLI) | payer OTHER ==
--- NOTE | 2018-12-05 11:12 | Ultrasound Report ---
Reason: FATTY LIVER Procedure Date: 12/05/2018 Accession Number: [id number] / [id number] Procedure: US - Abdomen Limited CPT Code: FULL RESULT: EXAM: ABDOMEN ULTRASOUND LIMITED, RUQ EXAM DATE: 12/05/2018 09:55 AM. CLINICAL HISTORY: Fatty liver. COMPARISON: ABDOMEN LIMITED 10/25/2018 10:59 PM. TECHNIQUE: Real-time scanning was performed with static images obtained. FINDINGS: Liver: Echotexture of the hepatic parenchyma is coarse with increased echogenicity which limits evaluation for underlying masses, none are seen. Liver measures at least 16.5 cm. Main portal vein flow: Hepatopetal. Gallbladder: Normal. No stones, wall thickening, or sonographic Thomas's sign. Biliary System: CBD measures 3 mm. No intrahepatic or extrahepatic ductal dilatation. Other: An intrauterine gestation with heart rate of 131 bpm is demonstrated on a single image. IMPRESSION: Coarse echogenic liver parenchyma which is nonspecific but can be seen with steatosis. RADIA
== END 2018-12-05 08:26 | disposition home or self-care (01) ==
LOC: DI 08:25
PROVIDERS: ATTEND Nurse Practitioner Obstetrics & Gynecology
DX: K76.0 Fatty (change of) liver, not elsewhere classified (principal)
CPT/HCPCS: 76705

== ENCOUNTER 2018-12-27 12:34 | Outpatient (CLI) | payer OTHER ==
[2018-12-27 21:41] LABS: TRICHOMONAS VAGINALIS DNA NEGATIVE (NEGATIVE)
== END 2018-12-27 23:59 | disposition home or self-care (01) ==
LOC: LAB.R 12:34
PROVIDERS: ATTEND Nurse Practitioner Obstetrics & Gynecology
DX: Z11.3 Encounter for screening for infections with a predominantly sexual mode of transmission (principal)
CPT/HCPCS: 87491; 87591; 87661; 87797

== ENCOUNTER 2019-01-16 06:46 | Inpatient (IN) | payer OTHER ==
[2019-01-16] MEDS ORDERED: AMPICILLIN 2 GM in SODIUM CHLORIDE 0.9% MINIBAG 100 ML IV ONE (06:56)
[2019-01-16] MEDS ORDERED: SODIUM CHLORIDE FLUSH 0.9% 10 ML SYRINGE ONE (07:37)
[2019-01-16] MEDS ORDERED: LACTATED RINGERS 1,000 ML IV ONE (07:37)
[2019-01-16] MEDS: SODIUM CHLORIDE FLUSH 0.9% 10 ML SYRINGE IVP SCH ×5 (09:00→16:30)
[2019-01-16] MEDS ORDERED: MAGNESIUM HYDROXIDE 2,400 MG/30 ML UDC PO PRN (10:13)
[2019-01-16] MEDS ORDERED: SODIUM CHLORIDE FLUSH 0.9% 10 ML SYRINGE IVP PRN (10:44)
[2019-01-16] MEDS ORDERED: ONDANSETRON 4 MG/2 ML VIAL IVP PRN (10:44)
[2019-01-16] MEDS ORDERED: LACTATED RINGERS 1,000 ML IV SCH ×2 (11:00→21:00)
[2019-01-16 11:11] LABS: BASOPHILS % (AUTO) 0.1 %; EOSINOPHILS # (AUTO) 0.1 10^3/uL (0.0-0.7); EOSINOPHILS % (AUTO) 0.6 %; HGB - HEMOGLOBIN 10.1 g/dL (12.0-16.0); LYMPHOCYTES # (AUTO) 2.3 10^3/uL (1.5-3.5); LYMPHOCYTES % (AUTO) 26.7 %; MEAN CORPUSCULAR HEMOGLOBIN 30.5 pg (27.0-31.0); MEAN CORPUSCULAR HGB CONC 32.7 g/dL (32.0-36.0); MEAN CORPUSCULAR VOLUME 93.4 fL (81.0-99.0); MONOCYTES # (AUTO) 0.7 10^3/uL (0.0-1.0); MONOCYTES % (AUTO) 8.5 %; NEUTROPHILS # (AUTO) 5.5 10^3/uL (1.5-6.6); NEUTROPHILS % (AUTO) 62.8 %; PLT - PLATELET COUNT 218 10^3/uL (130-450); RED BLOOD COUNT 3.31 10^6/uL (4.20-5.40); WHITE BLOOD COUNT 8.7 x10^3/uL (4.8-10.8)
[2019-01-16 11:20] LABS: CREATININE 0.5 mg/dL (0.4-1.0)
[2019-01-16 11:33] LABS: ALBUMIN 2.9 g/dL (3.2-5.5); ALBUMIN/GLOBULIN RATIO 0.9 (1.0-2.2); BILIRUBIN,TOTAL 0.5 mg/dL (0.2-1.0); CALCIUM 8.7 mg/dL (8.5-10.3); CREATININE 0.5 mg/dL (0.4-1.0)
[2019-01-16] MEDS: AMPICILLIN 1 GM in SODIUM CHLORIDE 0.9% MINIBAG 100 ML IV SCH ×2 (12:05→16:00)
--- NOTE | 2019-01-16 17:15 | HISTORY & PHYSICAL EXAMINATION ---
Admit History - Visit Reason Visit Reason: Other - : 5 Parity: 2 Premature: 0 Ectopic: 0 : 2 Care: positive: [facility] Risk/History: positive: None Complications This : positive: None Smoking Status: Former smoker - Mother's Labs Mother's Blood Type: positive: O Mother's RH: positive: Negative GBS: positive: Group B Strep Positive Rubella Status: positive: Immune Meds/Allgy - Home Medications Home Medications: Ambulatory Orders Medication Instructions Recorded Confirmed Pnv No.95/Ferrous Fum/Folic AC 1 each PO DAILY 10/25/18 10/25/18 [ Caplet] - Allergies Allergies/Adverse Reactions: Allergies Allergy/AdvReac Type Severity Reaction Status Date / Time No Known Drug Allergies Allergy Verified 10/25/18 20:42 Review of Systems - Constitutional Constitutional: denies: Fatigue, Fever, Chills - Eyes Eyes: denies: Blurred vision, Spots in vision, Dipolpia - Cardiovascular Cariovascular: denies: Irregular heart rate, Palpitations, Chest pain - Respiratory Respiratory: denies: SOB at rest - Gastrointestinal Gastrointestinal: reports: Constipation. denies: Diarrhea, Nausea, Vomiting - Integumentary Integumentary: denies: Rash, Pruritis - Neurological Neurological: denies: Headache - Psychiatric Psychiatric: denies: Depression, Anxiety Physical - Abdominal Exam Vital Signs: Temp Pulse Resp BP Pulse Ox 37.5 C 109 H 18 122/78 01/16/19 07:20 01/16/19 07:20 01/16/19 07:20 01/16/19 07:20 Contraction Frequency (min/apart): 2-6 Contraction Intensity: positive: Moderate Uterine Resting Tone: positive: Soft - Monitoring Heart Rate Baseline: 140 Strip Review: positive: Category I - Presentation Presentation: positive: Vertex - Vaginal Exam Membranes: positive: Membranes ruptured Dilation (in cm): 3-4 Effacement (%): 75 Station: positive: -2 Cervical Position: positive: Midposition - Speculum Exam Speculum Exam Performed: positive: No Plan for Labor - Plan For Labor I expect patient to be DC'd or transferred within 96 hours.: Yes Plan for Labor: HPI: This 28yo @ 39.2wks gestation presents to [facility] for elective IOL via AROM on 01/16/2019 at 0730. She was noted to be GBS positive and received a loading dose of ampicillin prior to AROM which occurred at 1103 and was noted to be a moderate amount of clear fluid. She has had an uneventful thus far with the exception of mildly increased echogenicity to her liver on ultrasound at 27wks gestation when she presented to [facility] ED with c/o right shoulder pain radiating to her chest in addition to nausea and vomiting. Her LFTs were WNL. Her repeat abdominal ultrasound at 32 weeks was stable and her LFTs were normal at that time, as well as on admission. She has been a patient of [facility] since 18wks gestation at which time she transferred care from [facility]. She did have an elevated 1 hour GTT - her 3 hour GTT was WNL. OB History: G1: 02/2010 SAB @ 6wks G2: 08/23/2014 @ 39wks, male, 9lbs 3oz G3: 05/2015 SAB @ 6wks G4: 03/30/2017 @ 41wks, male, 8lbs 12oz PMHx: Surgical Hx: Social Hx: Former smoker, no ETOH or IVDA. Henrique. Sons Heri & Richie. Expecting a baby boy - Jocelyn. Family Hx: Medications: PNV Allergies: NKDA labs: Hgb 10.1; Hct 30.9; PLT 218 Blood type O neg; antibody neg Rubella immune RPR neg Hep B neg Hep C neg UTOX neg GC/CT neg HIV neg 1 hour GTT elevated 3 hour GTT WNL GBS POSITIVE Immunizations: Tdap 10/27/2018 Rhogam 10/27/2018 Physical Exam: Heart RRR w/o M/G/R LUngs CTAB Abdomen gravid, soft and nontender EFW 3400g SVE 3-4/75/-2, midposition, soft, vertex on admission AROM @ 1103 and was noted to be a moderate amount of clear fluid Bilateral LE's no edema. Mood is good. supportive at the bedside. Assessment: @ 39.2wks gestation Elective IOL via AROM GBS Positive Plan: Intermittent monitoring 50mcg BC misoprostol 8 hours after AROM if cervix is unchanged GBS prophylaxis per protocol Anticipate spontaneous vaginal delivery
--- NOTE | 2019-01-16 17:31 | PROVIDER PROGRESS NOTE ---
Labor Progress Note - Uterine Monitoring Uterine Monitoring Mode: positive: External toco Contraction Frequency (min/apart): 2-6 Contraction Intensity: positive: Moderate Uterine Resting Tone: positive: Soft - Monitoring Monitor Mode: positive: Doppler/auscultation Heart Rate Baseline: 140 Decelerations: positive: None Strip Review: positive: Category I - Labor Progress Note Labor Progress Note/Additional Text: S: Breathing through contractions and states they are becoming more intense and longer in duration. She is hoping to avoid administration of medication and desires unmedicated delivery. and friends supportive at the bedside. O: Intermittent auscultation with doppler reveals base 140s, no decelerations Contractions palpate moderate every 2-6 minutes with soft resting tone. SVE deferred per patient preference A: 28yo @ 39.2wks gestation GBS positive - s/p 2 doses of ampicillin Early labor P: Intermittent auscultation per protocol until administration of medication for labor augmentation 50mcg BC misoprostol q 4 hours beginning 8 hours after AROM. Continue GBS prophylaxis per protocol. Anticipate spontaneous vaginal delivery.
[2019-01-16] MEDS ORDERED: LIDOCAINE-MPF 1% 30 ML VIAL ONE (19:32)
[2019-01-16] MEDS ORDERED: OXYTOCIN/DEXTROSE 5 % 30 UNIT/500 ML BAG IV ONE (19:33)
[2019-01-16] MEDS ORDERED: miSOPROStol 200 MCG TABLET ONE (19:33)
[2019-01-16] MEDS ORDERED: HYDROCORTISONE 1% CREAM 28 GM TUBE PR PRN (20:39)
[2019-01-16] MEDS ORDERED: WITCH HAZEL/GLYCERIN 1 PAD TOP PRN (20:39)
--- NOTE | 2019-01-16 20:49 | DELIVERY NOTE ---
Delivery Note - Labor Labor: positive: Induced by ARM - Infant Delivery Method Delivery Method: positive: Spontaneous vaginal delivery - Presentation Presentation: positive: Vertex, FIDEL - left occiput anterior - Nuchal Cord Nuchal Cord: positive: None - Amniotic Fluid Description Amniotic Fluid Description: positive: Clear - Episiotomy Type Episiotomy Type: positive: None - Laceration Laceration: positive: None - Delivery Outcome Delivery Outcome: positive: Livebirth - : positive: Placed in direct skin contact with mother, Stimulated, Warmed, Albert Lea used [place] sex: positive: Male - Cord Cord: positive: 3 vessels - Placenta Placenta: positive: Intact, Spontaneous - Estimated Blood Loss Estimated Blood Loss (in cc): 100 - Post Delivery Events Post Delivery Events: positive: No post delivery events - Delivery Comments (Free Text/Narrative) Delivery Comments (Free Text/Narrative): Labor: This 28yo @ 39.2wks gestation presented to [facility] at 0730 on 01/16/2019 for elective IOL with AROM. She was noted to be GBS positive and received ampicillin for prophylaxis per protocol. Cervix was 3-4/75/-2 and vertex. AROM occurred at 1103 and was noted to be a moderate amount of clear fluid. FHR pattern demonstrated baseline 140s throughout labor. Patient progressed to c/c/+1 @ 2000. : Normal of a viable male . No nuchal cords. 's 8/9 at 1 and 5 min respectively. The was placed on maternal abdomen, stimulated, dried, and placed skin to skin. The umbilical cord was allowed to stop pulsating at which time it was doubly clamped by CNM and cut by FOB. Cord blood was obtained. 3VC. Placenta delivered spontaneously and intact at 2024. Pt declines administration of pitocin. Uterine fundus firm and there is no excessive bleeding. EBL 100mL. The perineum, vagina, and cervix were inspected and found to be intact. initiated. Family bonding well. Both mother and baby were left in stable condition.
[2019-01-16] MEDS: ACETAMINOPHEN 500 MG TABLET PO SCH (21:21)
[2019-01-16] MEDS: IBUPROFEN 800 MG TABLET PO SCH (21:21)
[2019-01-16] MEDS: OXYTOCIN/DEXTROSE 5 % 30 UNIT/500 ML BAG IV PRN ×2 (21:25→23:36)
[2019-01-16] MEDS: DOCUSATE SODIUM 100 MG CAPSULE PO SCH (21:36)
[2019-01-17] MEDS: IBUPROFEN 800 MG TABLET PO SCH ×4 (03:02→21:21)
[2019-01-17] MEDS: ACETAMINOPHEN 500 MG TABLET PO SCH ×3 (05:20→21:20)
[2019-01-17 06:28] LABS: BASOPHILS % (AUTO) 0.1 %; EOSINOPHILS # (AUTO) 0.1 10^3/uL (0.0-0.7); EOSINOPHILS % (AUTO) 0.5 %; HGB - HEMOGLOBIN 9.3 g/dL (12.0-16.0); LYMPHOCYTES # (AUTO) 2.6 10^3/uL (1.5-3.5); LYMPHOCYTES % (AUTO) 16.7 %; MEAN CORPUSCULAR HEMOGLOBIN 30.2 pg (27.0-31.0); MEAN CORPUSCULAR HGB CONC 32.9 g/dL (32.0-36.0); MEAN CORPUSCULAR VOLUME 91.9 fL (81.0-99.0); MEAN PLATELET VOLUME 9.8 fL (7.9-10.8); MONOCYTES % (AUTO) 6.4 %; NEUTROPHILS # (AUTO) 11.9 10^3/uL (1.5-6.6); NEUTROPHILS % (AUTO) 75.5 %; PLT - PLATELET COUNT 219 10^3/uL (130-450); RED BLOOD COUNT 3.08 10^6/uL (4.20-5.40); RED CELL DISTRIBUTION WIDTH 13.9 % (12.0-15.0); WHITE BLOOD COUNT 15.8 x10^3/uL (4.8-10.8)
[2019-01-17] MEDS: DOCUSATE SODIUM 100 MG CAPSULE PO SCH ×2 (08:37→21:21)
--- NOTE | 2019-01-17 10:04 | PROVIDER PROGRESS NOTE ---
Subjective - Subjective Subjective: S: Bonding well with baby. without difficulty. Pain well controlled with oral medications. She denies pain at her perineum but states she feels her pain is mostly in her back and inside of her vagina. Overall feeling much better. Some increased cramping with which feels more intense than with her last baby. She had some moderate bleeding a couple of times throughout the night with a large clot passed followed by 3-4 smaller clots. She denies dizziness or lightheadedness. Her bleeding has slowed down significantly since completing her second bag of pitocin IV. Her mood is good. went home to get her two boys so they can meet their brother. Planning to stay another night for more help with as she struggled with both of her other children. She does state she is feeling more confident this time and that the added support from nursing staff has been very helpful to her. O: BP 118/70, T 36.7, HR 90, RR 16 Initial EBL 100mL with increased flow of bleeding 4-6 hours . Hgb 10.1-->9.3; Hct 30.9-->28.3; PLT 218-->219 Heart RRR w/o M/G/R, lungs CTAB, abdomen soft and nontender with fundus firm at U-1, perineum intact, light lochia rubra, bilateral LE's no edema. A: 28yo -->P3 PPD#1 s/p TSVD of viable male Perineum intact P: Continue routine care and medications. Encouraged specific attention to today and throughout the night. Will evaluate for discharge home tomorrow morning. Pt verbalized understanding and agrees to above plan. She denies further questions or concerns at this time. Objective - Vital Signs/Intake & Output Vital Signs: Vital Signs x48h Temp Pulse Resp BP Pulse Ox 01/17/19 08:30 36.7 C 90 16 118/70 100 01/17/19 06:00 36.6 C 91 18 113/75 100 Intake & Output: Intake & Output 01/14/19 01/15/19 01/16/19 01/17/19 23:59 23:59 23:59 23:59 Intake Total 1098.333 500 Output Total 900 Balance 1098.333 -400 - Lab Results Fish Bones: 01/17/19 06:25 08/05/19 11:03 Other Labs: Lab Results x24hrs 01/17/19 01/16/19 01/16/19 Range/Units 06:25 11:03 11:03 WBC 15.8 H 8.7 (4.8-10.8) x10^3/uL RBC 3.08 L 3.31 L (4.20-5.40) 10^6/uL Hgb 9.3 L 10.1 L (12.0-16.0) g/dL Hct 28.3 L 30.9 L (37.0-47.0) % MCV 91.9 93.4 (81.0-99.0) fL MCH 30.2 30.5 (27.0-31.0) pg MCHC 32.9 32.7 (32.0-36.0) g/dL RDW 13.9 14.0 (12.0-15.0) % Plt Count 219 218 (130-450) 10^3/uL MPV 9.8 10.0 (7.9-10.8) fL Neut # (Auto) 11.9 H 5.5 (1.5-6.6) 10^3/uL Lymph # (Auto) 2.6 2.3 (1.5-3.5) 10^3/uL [place] # (Auto) 1.0 0.7 (0.0-1.0) 10^3/uL Eos # (Auto) 0.1 0.1 (0.0-0.7) 10^3/uL Baso # (Auto) 0.0 0.0 (0.0-0.1) 10^3/uL Absolute Nucleated RBC 0.00 0.00 x10^3/uL Nucleated RBC % 0.0 0.0 /100WBC Sodium (135-145) mmol/L Potassium (3.5-5.0) mmol/L Chloride (101-111) mmol/L Carbon Dioxide (21-32) mmol/L Anion Gap (6-13) BUN (6-20) mg/dL Creatinine 0.5 (0.4-1.0) mg/dL Estimated GFR (MDRD) 148 (>89) Glucose (70-100) mg/dL Calcium (8.5-10.3) mg/dL Total Bilirubin (0.2-1.0) mg/dL AST (10-42) IU/L ALT (10-60) IU/L Alkaline Phosphatase (42-121) IU/L Total Protein (6.7-8.2) g/dL Albumin (3.2-5.5) g/dL Globulin (2.1-4.2) g/dL Albumin/Globulin Ratio (1.0-2.2) Blood Type Blood Type Recheck Antibody Screen Antibody Identification 01/16/19 01/16/19 01/16/19 Range/Units 11:00 10:58 08:05 WBC (4.8-10.8) x10^3/uL RBC (4.20-5.40) 10^6/uL Hgb (12.0-16.0) g/dL Hct (37.0-47.0) % MCV (81.0-99.0) fL MCH (27.0-31.0) pg MCHC (32.0-36.0) g/dL RDW (12.0-15.0) % Plt Count (130-450) 10^3/uL MPV (7.9-10.8) fL Neut # (Auto) (1.5-6.6) 10^3/uL Lymph # (Auto) (1.5-3.5) 10^3/uL [place] # (Auto) (0.0-1.0) 10^3/uL Eos # (Auto) (0.0-0.7) 10^3/uL Baso # (Auto) (0.0-0.1) 10^3/uL Absolute Nucleated RBC x10^3/uL Nucleated RBC % /100WBC Sodium 138 (135-145) mmol/L Potassium 3.6 (3.5-5.0) mmol/L Chloride 106 (101-111) mmol/L Carbon Dioxide 20 L (21-32) mmol/L Anion Gap 12.0 (6-13) BUN 6 (6-20) mg/dL Creatinine 0.5 (0.4-1.0) mg/dL Estimated GFR (MDRD) 148 (>89) Glucose 82 (70-100) mg/dL Calcium 8.7 (8.5-10.3) mg/dL Total Bilirubin 0.5 (0.2-1.0) mg/dL AST 19 (10-42) IU/L ALT 13 (10-60) IU/L Alkaline Phosphatase 122 H (42-121) IU/L Total Protein 6.0 L (6.7-8.2) g/dL Albumin 2.9 L (3.2-5.5) g/dL Globulin 3.1 (2.1-4.2) g/dL Albumin/Globulin Ratio 0.9 L (1.0-2.2) Blood Type O NEGATIVE Blood Type Recheck O NEGATIVE Antibody Screen POSITIVE Antibody Identification See Comments
[2019-01-17] MEDS ORDERED: RHO(D) IMMUNE GLOBULIN 300 MCG SYRINGE IVP ONE (14:41)
--- NOTE | 2019-01-18 07:45 | Discharge Plan ---
Discharge Plan Problem Reviewed?: Yes Disposition: Home, Self Care Condition: Good Diet: Regular Activity Restrictions: No Restrictions Shower Restrictions: No Driving Restrictions: No Weight Bearing: Full Weight No Smoking: If you smoke, Please STOP! Call for help. Follow-up with: Anabel Abdul CNM, ARNP [Provider Admit Priv/Credential] -
[2019-01-18] MEDS: IBUPROFEN 800 MG TABLET PO SCH (07:49)
[2019-01-18] MEDS: ACETAMINOPHEN 500 MG TABLET PO SCH (07:50)
[2019-01-18] MEDS: DOCUSATE SODIUM 100 MG CAPSULE PO SCH (07:50)
[2019-01-18 08:31] VITALS: BP 120/64
--- NOTE | 2019-01-18 11:11 | Labor Flowsheet ---
Labor Flowsheet Datetime Report Generated by CPN: 01/18/2019 11:11 Datetime: 01/18/2019 07:49 VITAL SIGNS NBP Sys/Christy/Mean (mmHg): 120 : 64 : 76 Pulse: 77 SpO2 (%): 100 LaborFlag: Labor Datetime: 01/16/2019 20:00 Comments: dop tones withheld per provider; pt PAIN Pain Scale: 10 Pain Presence: Intermittent Pain Type: Contraction Pain Location: Abdomen; Perineum Pain Relief Measures: Comfort Measures Pain Coping: Breathing Through Contractions; Declines Medication or Epidural VAGINAL EXAM Dilatation (cm): 10.0 Effacement (%): 100 Exam by: Anabel Abdul, CNM TEACHING Instructional Method: Verbal Plan of Care: Plan of Care Discussed Labor/Induction: Pushing Methods Datetime: 01/16/2019 19:56 STAGE 2 Pushing: Urge to Push Pushing Position: Pushing with Contractions; Pushing Left Side Datetime: 01/16/2019 19:48 UTERINE ACTIVITY Monitor Mode: Palpation Frequency (min): 1-1.5 Quality: Strong Duration (sec): 60-90 Resting Tone (Palpate): Relaxed ASSESSMENT A Monitor Mode: Doppler FHR Baseline Rate : 125 Patient Position/Activity: Left Lateral Datetime: 01/16/2019 19:39 Unit Routine: Unit Personnel Datetime: 01/16/2019 19:30 Membrane Comments: anterior lip Datetime: 01/16/2019 19:25 Provider Notified (Name): Anabel Chantell, CNM Communication Comments: Provider at bedside Datetime: 01/16/2019 19:22 COMMUNICATION Communication: RN at Bedside; Provider at Bedside; Report Given to @ [facility] RN Datetime: 01/16/2019 19:00 Stage of : Labor Pattern: Normal: <= 5 Contractions in 10 Minutes Accelerations: 15X15 Decelerations: None Station: 0 Datetime: 01/16/2019 18:52 Temperature (C): 36.2 Datetime: 01/16/2019 18:01 Respirations: 20 Temperature Route: Oral Variability: Moderate 6-25 bpm Pain Goal: 3 Pain Assessment Comments: Diane continues to cope well with contractions. Standing bent over the foot of the bed and doing pelvic rocks. Henrique is massaging her hips and lower back. Both doulas re main in the room and supportive. Datetime: 01/16/2019 16:00 MEDICATIONS Antibiotics: Ampicillin IV 1 Gm Datetime: 01/16/2019 15:20 Presentation 'A': Cephalic Position 'A': Left Occipital Posterior Comfort Measures: Casing Cooker Support Datetime: 01/16/2019 14:57 Category: Category I Datetime: 01/16/2019 11:10 Oxygen Method: Room Air Datetime: 01/16/2019 11:03 Membrane Status: Ruptured Membranes Rupture Method: Artificial Amniotic Fluid Color: Clear Amniotic Fluid Amount: Moderate Amniotic Fluid Odor: Normal Vaginal Bleeding: None Cervix, Consistency: Soft Cervix, Position: Posterior Vaginal Exam Comments: AROM of clear fluid Strip Reviewed by: Anabel PETERSM Datetime: 01/16/2019 09:03 Membranes Ruptured Date/Time: 01/16/2019 11:03 Datetime: 01/16/2019 09:00 PATIENT CARE IV/Blood Work: IV Saline Locked Datetime: 01/16/2019 07:54 Monitor Interventions for UA: [place] Adjusted
--- NOTE | 2019-01-25 16:57 | PROVIDER PROGRESS NOTE ---
Subjective - Prog Note Date Prog Note Date: 01/18/19 Prog Note Time: 08:00 - Subjective Subjective: 01/18/2019 FINAL PROGRESS NOTE: S: Bonding well with baby. without difficulty. Pain well controlled with oral medications. Bleeding decreased and is light. supportive at the bedside. Anxious to be discharged home today. O: Heart RRR w/o M/G/R, lungs CTAB, Abdomen soft and nontender with fundus firm at U-2, perineum intact, light lochia rubra. Bilateral LE"s no edema. A: 28yo -->P3 PPD#2 s/p TSVD of viable male P: Reviewed pp self care and warning s/sx. Advised continuation of PNV while . Advised OTC tylenol and ibuprofen as need for pain management. Return in 1 week for support visit or sooner PRN. Pt verbalized understanding and denies further questions or concerns at this time. Objective - Lab Results Fish Bones: 01/17/19 06:25 01/16/19 11:03
--- NOTE | 2019-01-25 20:52 | DISCHARGE SUMMARY ---
Physician: DANNIE Julio DATE OF ADMISSION: 01/16/2019 DATE OF DISCHARGE: 01/18/2019 DIAGNOSES ON ADMISSION 1. A 28-year-old G5, P2-0-2-2 at 39.2 weeks gestation. 2. Elective induction of labor via an artificial rupture of membranes. 4. Group B streptococcus positive. DIAGNOSES ON DISCHARGE 1. A 28-year-old G3, P2-0-2-3, status post spontaneous vaginal delivery on 01/16/2019. 2. Normal recovery. 3. . BRIEF HISTORY: She is a patient of [facility] who presented on 01/16/2019 at 0730 f or elective induction of labor with artificial rupture of membranes. She was noted to be GBS positiv e and received ampicillin for prophylaxis per protocol. Cervix was 3-4 cm dilated, 75% effaced, and -2 station in a vertex position upon arrival. Artificial rupture of membranes occurred at 1130 and w as noted to be a moderate amount of clear fluid. Patient progressed to spontaneously deliver a viabl e male infant on 01/16/2019. Apgars were 8 and 9 at one and five minutes respectively. EBL was 100 mL. The perineum, vagina and cervix were inspected and found to be intact. She has been doing well in her course. She is ambulating and tolerating a regular diet. She is urinating without difficulty and her lochia is normal. Her pain is well controlled with oral medications. She will be discharged home today on day 2 with instructions to continue her vitamin while , and to continue ibuprofen and Tylenol [id number] as need ed for pain management. She intends to followup with myself at [facility] in 1 week for support visit and in 3 weeks for routine visit. She has been given precaut ions to call if she has any worsening fevers, chills, abdominal pain, increased vaginal bleeding or f oul-smelling vaginal lochia. TD: 01/25/2019 16:54
== END 2019-01-18 10:30 | disposition home or self-care (01) | DRG 807 ==
LOC: WFO 06:46 → FBP 06:51 → WFO 06:52 → FBP 06:53 → OBSVTOIN 10:44 → INTOOBSV 10:44 → UNDODISIN 01-18 10:30
PROVIDERS: ADMIT Nurse Practitioner Obstetrics & Gynecology; ATTEND Nurse Practitioner Obstetrics & Gynecology
PROC: 10E0XZZ Delivery of Products of Conception, External Approach (ICD-10-PCS; principal; 2019-01-16)
PROC: 10907ZC Drainage of Amniotic Fluid, Therapeutic from Products of Conception, Via Natural or Artificial Opening (ICD-10-PCS; 2019-01-16)
DX: O99.824 Streptococcus B carrier state complicating childbirth (principal); Z37.0 Single live birth; O72.1 Other immediate postpartum hemorrhage; Z3A.39 39 weeks gestation of pregnancy; Z87.891 Personal history of nicotine dependence
CPT/HCPCS: 36415; 80053; 82565; 83033; 85025; 86850; 86870; 86900; 86901; 96365; A9270; G0378; G0379; J7120; 85027

== ENCOUNTER 2019-01-19 10:30 | Emergency (ER) | payer OTHER ==
--- NOTE | 2019-01-19 10:40 | ED Physician Documentation ---
History of Present Illness - Stated complaint Stated Complaint: FEMALE /POST - Chief complaint Chief Complaint: General - History obtained from History obtained from: Patient - History of Present Illness Timing: Prior to arrival - Additonal information Additional information: Patient is a 28-year-old female, G3, P3, 3 days vaginal delivery that was complicated by heavy vaginal bleeding requiring Pitocin presenting with passage of 2 large blood clots slightly larger than a golf ball. Patient also reports persistent Abdominal cramping since delivery without fever, urinary changes, vomiting, nausea or other complication. Patient has not yet had a bowel movement since delivery. Patient is breast-feeding. Patient contacted generation mechanic helper who directed patient to the ED. No other improving or worsening factors noted. Review of Systems Constitutional: denies: Fever GI: reports: Abdominal Pain. denies: Nausea, Vomiting, Diarrhea : reports: Vaginal bleeding. denies: Dysuria PD PAST MEDICAL HISTORY - Past Medical History Cardiovascular: None Respiratory: None Neuro: None, Other Endocrine/Autoimmune: None GI: None PARK KEEPER: None : None HEENT: None Psych: None Musculoskeletal: None Derm: None - Past Surgical History Past Surgical History: No - Present Medications Home Medications: Ambulatory Orders Medication Instructions Recorded Confirmed Pnv No.95/Ferrous Fum/Folic AC 1 each PO DAILY 10/25/18 10/25/18 [ Caplet] Cephalexin [Keflex] 500 mg PO BID 7 Days capsule 01/19/19 Methylergonovine Maleate 0.2 mg PO Q8HR 3 Days tablet 01/19/19 [Methergine] - Allergies Allergies/Adverse Reactions: Allergies Allergy/AdvReac Type Severity Reaction Status Date / Time No Known Drug Allergies Allergy Verified 10/25/18 20:42 - Social History Does the pt smoke?: No Smoking Status: Former smoker Does the pt drink ETOH?: No Does the pt have substance abuse?: No - Immunizations Immunizations are current?: Yes - POLST Patient has POLST: No PD ED PE NORMAL - Vitals Vital signs reviewed: Yes - General General: Alert and oriented X 3, No acute distress, Well developed/nourished - HEENT HEENT: Atraumatic, Moist mucous membranes - Neck Neck: Supple, no meningeal sign - Cardiac Cardiac: RRR, No murmur - Respiratory Respiratory: No respiratory distress, Clear bilaterally - Abdomen Abdomen: Soft, Non distended. No: Non tender (Mildly tender througout without guarding or rebound) - Derm Derm: Normal color, Warm and dry, No rash - Extremities Extremities: No deformity, No tenderness to palpate, No edema - Neuro Neuro: Alert and oriented X 3, No motor deficit, No sensory deficit - Psych Psych: Normal mood, Normal affect Results - Vitals Vitals: Vital Signs - 24 hr 01/19/19 01/19/19 10:34 13:44 Temperature 36.5 C 36.7 C Heart Rate 96 75 Respiratory 18 20 Rate Blood Pressure 135/83 H 122/71 O2 Saturation 99 100 Oxygen O2 Source Room air - Labs Labs: Laboratory Tests 01/19/19 01/19/19 01/19/19 11:15 11:15 11:15 WBC 9.7 RBC 3.18 L Hgb 9.5 L Hct 29.7 L MCV 93.4 MCH 29.9 MCHC 32.0 RDW 14.1 Plt Count 249 MPV 9.6 Neut # (Auto) 6.2 Lymph # (Auto) 2.4 Merrick # (Auto) 0.6 Eos # (Auto) 0.2 Baso # (Auto) 0.0 Absolute Nucleated RBC 0.00 Nucleated RBC % 0.0 PT 10.5 INR 0.9 APTT 25.0 Sodium 140 Potassium 4.2 Chloride 107 Carbon Dioxide 20 L Anion Gap 13.0 BUN 7 Creatinine 0.5 Estimated GFR (MDRD) 148 Glucose 76 Calcium 8.8 Total Bilirubin 0.4 AST 23 ALT 15 Alkaline Phosphatase 108 Total Protein 6.2 L Albumin 2.7 L Globulin 3.5 Albumin/Globulin Ratio 0.8 L Lipase 27 Urine Color Urine Clarity Urine pH Ur Specific State Center Urine Protein Urine Glucose (UA) Urine Ketones Urine Occult Blood Urine Nitrite Urine Bilirubin Urine Urobilinogen Ur Leukocyte Esterase Urine RBC Urine WBC Ur Squamous Epith Cells Urine Bacteria Ur Microscopic Review Urine Culture Comments Blood Type Antibody Screen Antibody Identification 01/19/19 01/19/19 12:00 15:05 WBC RBC Hgb Hct MCV MCH MCHC RDW Plt Count MPV Neut # (Auto) Lymph # (Auto) Merrick # (Auto) Eos # (Auto) Baso # (Auto) Absolute Nucleated RBC Nucleated RBC % PT INR APTT Sodium Potassium Chloride Carbon Dioxide Anion Gap BUN Creatinine Estimated GFR (MDRD) Glucose Calcium Total Bilirubin AST ALT Alkaline Phosphatase Total Protein Albumin Globulin Albumin/Globulin Ratio Lipase Urine Color YELLOW Urine Clarity HAZY Urine pH 7.0 Ur Specific State [place] 1.010 Urine Protein NEGATIVE Urine Glucose (UA) NEGATIVE Urine Ketones NEGATIVE Urine Occult Blood LARGE H Urine Nitrite NEGATIVE Urine Bilirubin NEGATIVE Urine Urobilinogen 0.2 (NORMAL) Ur Leukocyte Esterase TRACE H Urine RBC TNTC H Urine WBC 0-3 Ur Squamous Epith Cells MANY Squamous H Urine Bacteria None Seen Ur Microscopic Review INDICATED Urine Culture Comments NOT INDICATED Blood Type O NEGATIVE Antibody Screen POSITIVE Antibody Identification See Comments PD MEDICAL DECISION MAKING - ED course Complexity details: reviewed results, re-evaluated patient, considered differential, d/w patient, d/w family, d/w data power consultant ED course: Patient presenting several days with passage of clots and persistent abdominal cramping. Physical exam is relatively unremarkable otherwise and do not see signs of preeclampsia, eclampsia, HELLP, or other emergent complication related to recent delivery. Patient started on IV fluids and did not require other medications. Screening lab work and urinalysis obtained, as well as ultrasound.Ultrasound showed evidence of likely clot versus retained products of conception, however, given known vaginal delivery and passage of placenta, feel that retained products of conception is unlikely. Screening lab work showed decreased H&H from normal measurements, however, similar and slightly improved from recent measurements and in accordance to recent vaginal . Urinalysis also questionable for infection and do feel appropriate to start antibiotic. Discussed results with ACID ADJUSTER who recommended Methergine. Patient has received RhoGam earlier this week. Patient and has been advised of results and recommendations, use of medications, return precautions, and follow-up. Patient voiced understanding and is comfortable with discharge plan. Departure - Departure Disposition: 01 Home, Self Care Clinical Impression: hemorrhage of vagina Condition: Good Instructions: ED Bleed Irregular Vaginal Follow-Up: Anabel Abdul CNM, DANNIE [Provider Admit Priv/Credential] - Within 3 Days Prescriptions: Methylergonovine Maleate [Methergine] 0.2 mg PO Q8HR 3 Days tablet Cephalexin [Keflex] 500 mg PO BID 7 Days capsule Comments: Please continue home medications as previously instructed. Please continue breast-feeding. Please take antibiotics for likely urinary tract infection and Methergine to help stop vaginal bleeding. Follow-up with ACID ADJUSTER in the next 2 to 3 days and return to ED sooner if experience worsening symptoms or have other concerns.
[2019-01-19] MEDS ORDERED: SODIUM CHLORIDE 0.9% 1,000 ML IV ONE (10:47)
[2019-01-19 11:25] LABS: BASOPHILS % (AUTO) 0.3 %; EOSINOPHILS # (AUTO) 0.2 10^3/uL (0.0-0.7); EOSINOPHILS % (AUTO) 2.3 %; HGB - HEMOGLOBIN 9.5 g/dL (12.0-16.0); LYMPHOCYTES # (AUTO) 2.4 10^3/uL (1.5-3.5); LYMPHOCYTES % (AUTO) 24.9 %; MEAN CORPUSCULAR HEMOGLOBIN 29.9 pg (27.0-31.0); MEAN CORPUSCULAR VOLUME 93.4 fL (81.0-99.0); MEAN PLATELET VOLUME 9.6 fL (7.9-10.8); MONOCYTES # (AUTO) 0.6 10^3/uL (0.0-1.0); MONOCYTES % (AUTO) 6.2 %; NEUTROPHILS # (AUTO) 6.2 10^3/uL (1.5-6.6); NEUTROPHILS % (AUTO) 64.6 %; PLT - PLATELET COUNT 249 10^3/uL (130-450); RED BLOOD COUNT 3.18 10^6/uL (4.20-5.40); RED CELL DISTRIBUTION WIDTH 14.1 % (12.0-15.0); WHITE BLOOD COUNT 9.7 x10^3/uL (4.8-10.8)
[2019-01-19 11:33] LABS: INR 0.9 (0.8-1.2); PT - PROTHROMBIN TIME 10.5 secs (9.9-12.6)
[2019-01-19 11:37] LABS: ALBUMIN 2.7 g/dL (3.2-5.5); ALBUMIN/GLOBULIN RATIO 0.8 (1.0-2.2); BILIRUBIN,TOTAL 0.4 mg/dL (0.2-1.0); CALCIUM 8.8 mg/dL (8.5-10.3); CREATININE 0.5 mg/dL (0.4-1.0); TOTAL PROTEIN 6.2 g/dL (6.7-8.2)
--- NOTE | 2019-01-19 13:39 | Ultrasound Report ---
Reason: heavy bleeding, 3 days Procedure Date: 01/19/2019 Accession Number: [id number] / [id number] Procedure: US - Pelvic Complete CPT Code: FULL RESULT: EXAM: PELVIC ULTRASOUND EXAM DATE: 01/19/2019 01:23 PM. CLINICAL HISTORY: 28-year-old female. Heavy bleeding, 3 days . COMPARISON: None. TECHNIQUE: Realtime transabdominal pelvic scan performed with static image documentation. FINDINGS: Uterus: Approximately 19.4 x 8.0 x 10.9 cm, volume 886 cc. Anteverted position. Enlarged heterogeneous uterus. Masses: None. Endometrium: Thickened in the lower uterine segment measuring up to about 3.7 cm. Moderately heterogeneous fusiform area of thickening in the lower uterine segment measuring about 3.7 x 4.5 x 6.5 cm without evidence of vascularity on color Doppler ultrasound. Cervix: Unremarkable. Right Ovary: 3.50 1.1 x 1.3 cm, volume 2.8 cc. Normal echotexture and blood flow. Left Ovary: 3.5 x 1.4 x 2.6 cm, volume 7.1 cc. Normal echotexture and blood flow. Free Fluid: None. Other: None. IMPRESSION: Approximately 3.7 x 4.5 x 6.5 cm fusiform area of moderately heterogeneous material in the lower uterine segment without demonstrable internal vascularity, indeterminate for blood clot versus retained products of conception. RADIA
[2019-01-19 13:44] VITALS: BP 122/71
[2019-01-19] MEDS ORDERED: METHYLERGONOVINE 0.2 MG/ML AMP PO STA (14:29)
[2019-01-19] MEDS ORDERED: CHERRY SYRUP 10 ML UDC PO ONE (14:29)
[2019-01-19 15:20] LABS: BILIRUBIN,URINE NEGATIVE (NEGATIVE); GLUCOSE, URINE (UA) NEGATIVE (NEGATIVE); KETONES,URINE (UA) NEGATIVE (NEGATIVE); LEUKOCYTE ESTERASE, URINE TRACE (NEGATIVE); NITRITE,URINE NEGATIVE (NEGATIVE); OCCULT BLOOD,URINE LARGE (NEGATIVE); PROTEIN,URINE NEGATIVE (NEGATIVE); UROBILINOGEN,URINE 0.2 (NORMAL) E.U./dL (NORMAL)
[2019-01-19 15:22] LABS: CLARITY,URINE HAZY (CLEAR)
[2019-01-19 15:33] LABS: BACTERIA,URINE None Seen /HPF (None Seen); RBC,URINE TNTC /HPF (0-5); SQUAMOUS EPITHELIAL CELL,UR MANY Squamous (<= Few)
== END 2019-01-19 16:13 | disposition home or self-care (01) ==
LOC: ED 10:30
DX: O72.2 Delayed and secondary postpartum hemorrhage (principal); Z87.891 Personal history of nicotine dependence
CPT/HCPCS: 36415; 76856; 80053; 81001; 81003; 83690; 85025; 85610; 85730; 86850; 86870; 86900; 86901; 87086; 96360; 96361; 99284